=== PATIENT | female | born 1950 | race Caucasian/White ===

== ENCOUNTER → 2020-06-30 | Outpatient (CLI) | payer MEDICARE | LOC: KOH-I 06-25 13:00 → EXRD 06-25 13:00 → KOH-I 06-25 14:30 | DX: Z01.818 Encounter for other preprocedural examination (principal); M81.0 Age-related osteoporosis without current pathological fracture; M54.12 Radiculopathy, cervical region; M85.89 Other specified disorders of bone density and structure, multiple sites; M50.121 Cervical disc disorder at C4-C5 level with radiculopathy; M48.02 Spinal stenosis, cervical region; M47.22 Other spondylosis with radiculopathy, cervical region | CPT/HCPCS: 72125; 77080 ==